=== PATIENT | male | born 1975 | race Caucasian/White ===

== ENCOUNTER 2023-12-04 12:16 | Inpatient (IN) | payer SELFPAY ==
[~2023-12-04] VITALS: Wt 66.5 kg
[2023-12-04] MEDS ORDERED: NS 1,000 ML IV ONE ×2 (12:30→14:00)
[2023-12-04] MEDS ORDERED: HUMALOG100 U/ML SQ (12:44)
[2023-12-04] MEDS ORDERED: Insulin Regular Human (NovoLIN R/HumuLIN R) IV ONE (12:45)
[2023-12-04] MEDS ORDERED: LIPITOR20 MG PO (12:45)
[2023-12-04] MEDS ORDERED: PROZAC 20MG20 MG PO (12:45)
[2023-12-04] MEDS ORDERED: JANUVIA 100MG100 MG PO (12:45)
[2023-12-04] MEDS ORDERED: NEURONTIN300 MG/CAP PO (12:46)
[2023-12-04] MEDS ORDERED: INSULIN HUMA100 U/ML SQ (12:48)
[2023-12-04] MEDS ORDERED: Insulin Human Regular/NS 100 ML IV ONE (13:30)
--- NOTE | 2023-12-04 15:17 | NUR ---
PATIENT ARRIVED VIA WHEELCHAIR TO ICU ACCOMPAIED BY ER STAFF. PATIENT NOT IN DISTRESS AT THIS TIME. PATIENT REPORT RECIEVED FROM RUSSEL BOOKER.
[2023-12-04] MEDS ORDERED: Docusate Sodium 100 MG CAP PO PRN (15:45)
[2023-12-04] MEDS ORDERED: Polyethylene Glycol 3350 17 GM PDS PO PRN (15:45)
[2023-12-04] MEDS ORDERED: NS 1,000 ML IV SCH (15:45)
[2023-12-04] MEDS ORDERED: Ondansetron 4 MG/2 ML VIAL IV PRN (15:45)
[2023-12-04] MEDS ORDERED: Acetaminophen 325 MG TAB PO PRN (15:45)
[2023-12-04 16:00] VITALS: BP 125/90; PULSE 73; TEMP 97.7
[2023-12-04] MEDS ORDERED: Heparin 5,000 UNITS/ML 1 ML VIAL SQ SCH (16:00)
[2023-12-04] MEDS ORDERED: [UNRECOGNIZED DRUG - OTHER] SQ SCH (18:15)
[2023-12-04] MEDS ORDERED: INSULIN ASPART PROTAMINE SQ SCH (18:15)
[2023-12-04] MEDS ORDERED: Glucagon 1 MG VIAL IM PRN (18:30)
[2023-12-04] MEDS ORDERED: Dextrose (Glucose) 15 GM (4 x 3.75 GM) Chewable TABLET PACK PO PRN (18:30)
[2023-12-04] MEDS ORDERED: Dextrose 50% Water 25 GM/50 ML SYRINGE IV PRN (18:30)
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
[2023-12-04 20:00] VITALS: BP 126/91; PULSE 76; TEMP 98.2
[2023-12-04] MEDS ORDERED: Atorvastatin 20 MG TAB PO SCH (21:00)
[2023-12-04] MEDS ORDERED: Gabapentin 300 MG CAP PO SCH (21:00)
[2023-12-04] MEDS ORDERED: Insulin Lispro (HumaLOG) SQ SCH (21:00)
--- NOTE | 2023-12-04 21:39 | NUR ---
Patient lying in bed, alert and oriented x4. denies chest pain and shortness of breath. IV in RAC is patent, site CDI. small scattered scabs noted on shins. pt ambulated with steady gait to bedside toilet, large loose BM. insulin given per sliding scale orders for BG of 221. pt has no further needs, questions, or concerns at this time. call light within reach. will continue to monitor.
[2023-12-05 00:26] VITALS: BP 103/67; PULSE 75; TEMP 97.9
[2023-12-05 04:03] VITALS: BP 101/68; PULSE 76; TEMP 97.7
--- NOTE | 2023-12-05 07:45 | NUR ---
Patient resting in bed; alert and oriented and in no distress. Assisted up to use the bathroom. Gait steady. No concerns at this time.
[2023-12-05] MEDS ORDERED: FLUoxetine 20 MG CAP PO SCH (09:00)
[2023-12-05 12:11] VITALS: BP 131/92; PULSE 91; TEMP 97.7
[2023-12-05] MEDS ORDERED: GLUCAGON EMERGEN1 M1 SQ (12:12)
[2023-12-05] MEDS ORDERED: LIPITOR20 MG PO (12:12)
[2023-12-05] MEDS ORDERED: GLUCOSE TEST ST1 DEV MC (12:12)
[2023-12-05] MEDS ORDERED: PROZAC 20MG20 MG PO (12:12)
[2023-12-05] MEDS ORDERED: HUMULIN 70/3100 U/M1 SQ (12:12)
[2023-12-05] MEDS ORDERED: GLUTOSE 1515 GM PO (12:12)
[2023-12-05] MEDS ORDERED: B-D SAFETY GLID1 DE1 SQ (12:12)
[2023-12-05] MEDS ORDERED: FREESTYLE PREC1 EAC5 MC (12:12)
[2023-12-05] MEDS ORDERED: BD ALCOHOL1 SWA MC (12:12)
[2023-12-05] MEDS ORDERED: LANCETS MC (12:12)
[2023-12-05] MEDS ORDERED: JANUVIA 100MG100 MG PO (12:43)
[2023-12-05] MEDS ORDERED: NEURONTIN300 MG/CAP PO (12:43)
--- NOTE | 2023-12-05 14:04 | NUR ---
aids social worker met with patient to discuss discharge planning. Patient is iraqi speaking only. SW utilized [employer] historic interpreter services, historic interpreter ID [id number]. Patient confirmed he lives in [place] with a roommate. SW asked in several different ways for an emergency contact center professional and phone number. Patient stated he does not have the number, social service worker asked if patient has the number in his phone. Patient stated he did, SW handed patient phone then patient stated he did not have the number. Patient eventually provided the name Lenny Maldonado but did not have a number. Patient reports he does not have a PCP, insurance or job as he just came to the [facility]. SW provided information on [facility] and explained he would follow up with them for his medical care. Patient stated the only pharmacy he knows of is [facility] and expressed he has been there to try to fill his insulin; however, they were unable to fill due to his prescriptions being from [place]. Patient stated he needs [place] from [place] and he tried to go to urgent care for this but they were unable to do so. SW asked if they were to send a script for him if he would be able to afford his medications. Patient stated not at this time because he is unemployed. SW explained they can send a medication voucher to [facility] for him for a one time fill, when these medications are empty patient will need to pay for his prescriptions at [facility]. Patient expressed understanding. SW asked if patient has a glucometer, patient stated he does not need to use one. SW explained if patient's doctor is recommending one, she will have [facility] fill this as well under the medication voucher. Patient stated he is independent with ADLS and no other DME other than his insulin and will need glucometer. Patient stated he has no vehicle and no friends that are able to transport him. SW provided information on the [facility] and explained she would assist with getting him an Uber to [place] pickup his medications and get him home. Patient understood. No further questions or concerns from patient at this time. LORE met with Dr Marte whom expressed he would like to send patient on Novolin R insulin vial. SW contacted [facility] whom explained they do not have Novolin R as this is a [employer] brand, so they would have to order it and it would be delivered tomorrow. Since patient is wanting to discharge today, LORE asked about what brand they currently carry. Leonard at [facility] stated they have Humalog. Leonard explained they would also need to know how many units patient needs and how often to determine what syringes to give him. LORE also asked if they would be able to send these scripts to [facility] for next month as patient is in walking distance to them, so it would be easier for him. Leonard stated they could do this. LORE contacted Dr. Marte whom explained patient would need Humalin 70/30 NPH as it is long acting versus short acting, units would be 15 units twice a day. LORE contacted Leonard at [facility] and provided this information. Total would be 92.07. LORE attempted to contact [facility]. No answer, SW left a voicemail and provided the patient's phone number for them to call directly and schedule an appointment. LORE stated on the voicemail that patient is iraqi speaking only. LORE and LORE student met with patient. LORE utilized the [employer] interpretation services, historic interpreter ID [id number]. LORE provided the [facility] Resource Guide and information for [facility] both translated into [employer]. SW explained the voucher, patient signed. SW explained the plan of discharge today and they would send patient in an Uber to [facility] then the Uber would transport him from [facility] to his home. Patient understood. LORE and LORE Student wrote information for discharge to ensure patient understood that he would go to [facility] to sampler pickup the prescriptions then the Uber would transport him home. SW explained on this form that patient would be responsible for payment after this prescription fill as the hospital only covers the first refill. LORE also wrote instructions to follow up with [facility]. LORE was notified by Dr. Marte that patient has 4 other prescriptions that would need filled: Januvia, Fluoxteine, Gabapentin and Atorvastatin. LORE contacted [facility] at [facility] whom explained Januvia is $550, Fluoxetine, Gabapentin and Atorvastatin are all around $11 each. LORE spoke with Aurora Newton, social service worker supervisor volunteer services, authorized all but the Januvia. LORE notified Dr. Marte whom expressed patient will follow up with [facility] to determine if he needs to be changed from Januvia. LORE was notified patient needs Glutose-15 and alcohol prep pads too. LORE contacted Leonard at [facility]. Leonard provided the total for all medications will be $150.21. The Glutose-15 will need to be delivered to patient's home because they do not have it in stock. LORE faxed voucher, prescriptions and facesheet to [facility]. LORE notified patient's nurse of the above information. LORE confirmed medications were filled, LORE scheduled Uber. Patient departed. DIscharge plan: Home
--- NOTE | 2023-12-05 15:29 | NUR ---
Discharge packet reviewed with patient using the [employer] dehydration reactor operator service. All questions and concerns addressed at this time. central office worker set up transportation with an uber to the pharmacy and back home. Patient alert and oriented and in no distress upon discharge. Patient escorted directly to the uber for discharge.
== END 2023-12-05 15:30 | disposition home or self-care (01) | DRG 638 ==
LOC: COL.ER 12:16 → ICU 14:27
PROVIDERS: ADMIT Hospitalist
DX: E11.00 Type 2 diabetes mellitus with hyperosmolarity without nonketotic hyperglycemic-hyperosmolar coma (NKHHC) (principal); E87.1 Hypo-osmolality and hyponatremia; N17.9 Acute kidney failure, unspecified; E11.40 Type 2 diabetes mellitus with diabetic neuropathy, unspecified; F32.A Depression, unspecified; E11.22 Type 2 diabetes mellitus with diabetic chronic kidney disease; N18.9 Chronic kidney disease, unspecified; E86.0 Dehydration; E78.5 Hyperlipidemia, unspecified; F17.210 Nicotine dependence, cigarettes, uncomplicated; Z79.4 Long term (current) use of insulin
CPT/HCPCS: J1644; J1815; J7030